=== PATIENT | female | born 1980 | race Caucasian/White ===

== ENCOUNTER 2025-04-05 18:22 | Emergency (ER) | payer SELFPAY ==
[~2025-04-05] VITALS: Ht 165.1 cm; Wt 74.8 kg
[~2025-04-05 18:22] MED LIST: CLARITHROMYCIN500 MG PO; CLINDAMYCIN HC300 MG PO; FLAGYL500 MG PO; MEDROL DOSEPAK4 MG PO; NORCO 5-325 TA1 EACH PO; OMEPRAZOLE D/R20 MG PO; OMEPRAZOLE40 MG PO
[2025-04-05] MEDS ORDERED: Acetaminophen/Hydrocodone 5 MG/325 MG TABLET PO ONE (19:30)
== END 2025-04-05 20:51 | disposition home or self-care (01) ==
LOC: ED 18:22
DX: S52.501A Unspecified fracture of the lower end of right radius, initial encounter for closed fracture (principal); Z88.0 Allergy status to penicillin; W01.0XXA Fall on same level from slipping, tripping and stumbling without subsequent striking against object, initial encounter; Y93.89 Activity, other specified; Y92.89 Other specified places as the place of occurrence of the external cause; Y99.8 Other external cause status